=== PATIENT | male | born 1975 | race Caucasian/White ===

== ENCOUNTER 2019-06-26 22:15 | Inpatient (IN) | payer OTHER, SELFPAY ==
--- NOTE | 2019-06-26 22:17 | ED_ITS ---
HPI - Abdominal Pain General Chief Complaint: GI Bleed Stated Complaint: Constipation followed by bloody diarrhea Time Seen by Provider: 06/26/19 22:16 Source: patient Mode of arrival: Ambulatory Limitations: no limitations History of Present Illness HPI narrative: 44M non smoker without contributory medical history presents with chief complaint of rectal bleeding. He had been somewhat constipated for a day or so and then over the course of the day he has started having bright red rectal bleeding. He has some pain in LLQ, but not significant. He is not dizzy or lightheaded. He denies any rectal injury or fullness, nor any history of hemorrhoids. He has no family history of colon or rectal cancer and has never had a colonoscopy. He takes no blood thinners. He denies any new medications or dietary change. He has had no travel. He denies fever chills nor nausea or vomiting. He has had no chest pain or shortness of breath. MD complaint: other Onset (ago): hour(s) Pain Consistency: constant Location: LLQ Severity: moderate Quality: cramping and fullness Relieving factors: nothing Exacerbating factors: nothing Related Data Allergies Allergy/AdvReac Type Severity Reaction Status Date / Time No Known Drug Allergies Allergy Verified 06/26/19 22:28 Review of Systems Constitutional Constitutional: Denies chills, Denies fatigue, Denies fever(s), Denies frequent falls, Denies lethargy and Denies weakness Eyes Eyes: Denies change in vision, Denies eye discharge, Denies irritation and Denies loss of vision ENT Ears, Nose, Mouth, and Throat: Denies change in voice, Denies dizziness, Denies neck pain, Denies sore throat and Denies throat swelling Cardiovascular Cardiovascular: Denies chest pain, Denies irregular heart rhythm, Denies lightheadedness, Denies palpitations, Denies dyspnea, Denies dyspnea on exertion and Denies orthopnea Respiratory Respiratory: Denies cough, Denies dyspnea, Denies dyspnea on exertion and Denies wheezing Gastrointestinal Gastrointestinal: Denies abdominal pain, Reports hematochezia, Denies change in bowel habits, Denies diarrhea, Denies nausea and Denies vomiting Genitourinary Genitourinary: Denies hematuria, Denies flank pain, Denies urinary incontinence and Denies urinary urgency Musculoskeletal Musculoskeletal: Denies back pain, Denies muscle weakness, Denies neck pain, Denies numbness and Denies tingling Integumentary/Breasts Skin/Breast: Denies pruritus, Denies erythema, Denies rash and Denies wounds Neurologic Neurologic: Denies behavioral changes, Denies confusion, Denies dizziness, Denies frequent falls, Denies loss of vision, Denies numbness, Denies tingling and Denies weakness Psychiatric Psychiatric: Denies anxiety, Denies behavioral changes, Denies confusion, Denies depression, Denies homicidal ideation and Denies suicidal ideation Endocrine Endocrine: Denies fatigue, Denies flushing and Denies palpitations Hematologic/Lymphatic Hematologic/Lymphatic: Denies easy bruising Allergic/Immunologic Allergic/Immunologic: Denies urticaria, Denies throat swelling and Denies wheez ing Patient History Social History Smoking Status: Never smoker Smoking Status: Never smoker Exam Narrative Exam Narrative: GENERAL: [44] year old patient appears stated age. Well- nourished, well-developed patient, in mild distress. HEAD: Atraumatic. Normocephalic. EYES: Pupils equal round and reactive. Extraocular motions intact. No scleral icterus. No injection or drainage. ENT: Nose without bleeding, purulent drainage. Throat without erythema, tonsillar hypertrophy or exudate. Airway patent. NECK: Trachea midline. Non tender CARDIOVASCULAR: Regular rate and rhythm without murmurs, gallops, or rubs. RESPIRATORY: Clear to auscultation. Breath sounds equal bilaterally. No wheezes, rales, or rhonchi. GASTROINTESTINAL: Abdomen soft, non-tender, nondistended. RECTAL: No fissure or hemorrhoid. Heme + EXTREMITIES: No edema or joint tenderness. BACK: Nontender without deformity or crepitance. No flank tenderness. NEURO: AOx3. SKIN: No rash or erythema of visible areas Initial Vital Signs Initial Vital Signs: Vital Signs Temperature 96.8 F L 06/26/19 22:25 Pulse Rate 91 H 06/26/19 22:25 Respiratory Rate 15 06/26/19 22:25 Blood Pressure 170/102 H 06/26/19 22:25 Pulse Oximetry 97 06/26/19 22:25 Course Orders Ordered: ED Orders 06/26/19 22:33 XR acute abdomen series Stat 06/26/19 22:50 Complete Blood Count AUTO DIFF Stat Comprehensive Metabolic Panel Stat Partial Thromboplastin Time Stat Prothrombin Time INR Stat 06/26/19 23:31 CT abdomen pelvis w con Stat 06/27/19 00:32 Hemoglobin and Hematocrit Stat Consultations Consultation #1: call to Gen Surg (Court) whom is in agreement that patient will need admission, stabilization and likely colonoscopy. Requests Levaquin/Flagyl Consultation #2: Hospitalist happy to accept Vital Signs Vital signs: Vital Signs - 8 hr 06/26/19 22:25 06/26/19 23:58 Temperature 96.8 F L Pulse Rate 91 H 82 Respiratory Rate 15 18 Blood Pressure 170/102 H Blood Pressure [Left Arm] 151/87 H Pulse Oximetry 97 96 MDM - Abdominal Pain Lab Data Result diagrams: 06/27/19 00:32 06/26/19 22:50 Labs: Lab Results 06/26/19 06/26/19 06/26/19 Range/Units 22:50 22:50 22:50 WBC 13.5 H (4.5-11.0) X10^3/uL RBC 5.60 (4.5-5.9) X10^6/uL Hgb 16.1 (13.5-17.5) g/dL Hct 46.2 (41-53) % MCV 82.6 (80-100) fL MCH 28.8 (26-34) PG MCHC 34.9 (30-36) % RDW 13.5 (11.6-14.8) % Plt Count 406 H (150-400) X10^3/uL Neut % (Auto) 77.4 H (50-75) % Lymph % (Auto) 12.1 L (25-40) % Sabine % (Auto) 7.6 (3-14) % Eos % (Auto) 2.1 (2-4) % Baso % (Auto) 0.8 (0-2) % Neut # (Auto) 73310 H (8339-2216) /uL Lymph # (Auto) 1600 (6445-3828) /uL Sabine # (Auto) 1000 H (0-900) /uL Eos # (Auto) 300 (0-450) /uL Baso # (Auto) 100 (0-100) /uL PT 11.6 (10.1-12.7) SECONDS INR 1.0 (0.9-1.3) APTT 32 (26.4-36.2) SECONDS Sodium 137 (137-145) mmol/L Potassium 4.4 (3.4-5.1) mmol/L Chloride 102 (98-107) mmol/L Carbon Dioxide 27 (22-32) mmol/L BUN 14 (9-20) mg/dL Creatinine 1.01 (0.66-1.25) mg/dL Estimated GFR > 60.0 (>60) mL/min BUN/Creatinine Ratio 13.9 (6-22) Glucose 96 (70-100) mg/dL Calcium 10.0 (8.4-10.2) mg/dL Total Bilirubin 0.6 (0.2-1.3) mg/dL AST 28 (17-59) IU/L ALT 34 (<50) IU/L Alkaline Phosphatase 57 (38-126) U/L Total Protein 7.9 (6.3-8.2) g/dL Albumin 4.8 (3.5-5.0) g/dL Globulin 3.1 (1.7-4.1) g/dL Albumin/Globulin Ratio 1.5 (1.0-2.8) 06/27/19 Range/Units 00:32 WBC (4.5-11.0) X10^3/uL RBC (4.5-5.9) X10^6/uL Hgb 15.5 (13.5-17.5) g/dL Hct 44.8 (41-53) % MCV (80-100) fL MCH (26-34) PG MCHC (30-36) % RDW (11.6-14.8) % Plt Count (150-400) X10^3/uL Neut % (Auto) (50-75) % Lymph % (Auto) (25-40) % Sabine % (Auto) (3-14) % Eos % (Auto) (2-4) % Baso % (Auto) (0-2) % Neut # (Auto) (2306-6619) /uL Lymph # (Auto) (8027-6715) /uL Sabine # (Auto) (0-900) /uL Eos # (Auto) (0-450) /uL Baso # (Auto) (0-100) /uL PT (10.1-12.7) SECONDS INR (0.9-1.3) APTT (26.4-36.2) SECONDS Sodium (137-145) mmol/L Potassium (3.4-5.1) mmol/L Chloride (98-107) mmol/L Carbon Dioxide (22-32) mmol/L BUN (9-20) mg/dL Creatinine (0.66-1.25) mg/dL Estimated GFR (>60) mL/min BUN/Creatinine Ratio (6-22) Glucose (70-100) mg/dL Calcium (8.4-10.2) mg/dL Total Bilirubin (0.2-1.3) mg/dL AST (17-59) IU/L ALT (<50) IU/L Alkaline Phosphatase (38-126) U/L Total Protein (6.3-8.2) g/dL Albumin (3.5-5.0) g/dL Globulin (1.7-4.1) g/dL Albumin/Globulin Ratio (1.0-2.8) Imaging Data CT scan - abdomen/pelvis: Radiologist's Impression: Moderate colitis involving the descending and proximal sigmoid colon segments MDM Narrative Medical decision making narrative: H/H remains stable as do vitals, but given the fact that patient has had 5+ bloody BMs during visit we will bring him in for stabilization and further evaluation with repeat H/H, abd exams, and likely colonoscopy Discharge Plan Departure Patient Disposition: Admitted As Inpatient Clinical Impression: Colitis, Bright red rectal bleeding Admit Date/Time: 06/27/19 01:15 Admit Provider: Migue Francois
[2019-06-26 22:25] VITALS: BP 170/102; PULSE 91; RESP 15; TEMP 36; O2SAT 97; BMI 31.6
--- NOTE | 2019-06-26 22:33 | DI.RAD.S_ITS ---
PROCEDURE: XR ACUTE ABDOMEN SERIES INDICATIONS: Abdominal pain, constipation, bloody diarrhea TECHNIQUE: One view chest and two views of the abdomen were acquired. COMPARISON: None. FINDINGS: Surgical changes and devices: None. Chest: Lungs are clear. Heart size is normal. No pleural effusions. No pneumoperitoneum. Abdomen: Bowel gas pattern is normal except for mild right colonic obstipation. No suspicious calcifications. Visualized solid organ contours appear normal. Bones: No suspicious bony lesions. IMPRESSION: Mild colonic obstipation right colon. Dictated by: Alessandro Garcia M.D. on 06/27/2019 at 8:06 Approved by: Alessandro Garcia M.D. on 06/27/2019 at 8:07
--- NOTE | 2019-06-26 22:55 | PC.NURSE ---
patient required two breaks from starting IV and abdominal xray to urgently use the restroom. Visible vishnu blood in toilet. He reports he's had maybe 20 of these episodes today. Denies lightheadedness, dizzyness. Ambulates with steady gate.
[2019-06-26 23:06] LABS: Add Manual Diff / Slide Review NO; Basophils Absolute Auto 100 /uL (0-100); Basophils Percent Auto 0.8 % (0-2); Eosinophils Absolute Auto 300 /uL (0-450); Eosinophils Percent Auto 2.1 % (2-4); Hematocrit 46.2 % (41-53); Hemoglobin 16.1 g/dL (13.5-17.5); Lymphocytes Absolute Auto 1600 /uL (1100-4500); Lymphocytes Percent Auto 12.1 % (25-40); Mean Corpuscular HGB Conc 34.9 % (30-36); Mean Corpuscular Hemoglobin 28.8 PG (26-34); Mean Corpuscular Volume 82.6 fL (80-100); Monocytes Absolute Auto 1000 /uL (0-900); Monocytes Percent Auto 7.6 % (3-14); Neutrophils Absolute Auto 10500 /uL (1500-7000); Neutrophils Percent Auto 77.4 % (50-75); Platelet Count 406 X10^3/uL (150-400); Red Cell Distribution Width 13.5 % (11.6-14.8); White Blood Cell Count 13.5 X10^3/uL (4.5-11.0)
[2019-06-26 23:09] LABS: Prothrombin Time 11.6 SECONDS (10.1-12.7)
[2019-06-26 23:11] LABS: PTT Partial Thromboplastin Tim 32 SECONDS (26.4-36.2)
[2019-06-26 23:21] LABS: Alanine Aminotransferase 34 IU/L (<50); Albumin 4.8 g/dL (3.5-5.0); Albumin Globulin Ratio 1.5 (1.0-2.8); Alkaline Phosphatase 57 U/L (38-126); Aspartate Aminotransferase 28 IU/L (17-59); BUN Creatinine Ratio 13.9 (6-22); Bilirubin Total 0.6 mg/dL (0.2-1.3); Blood Urea Nitrogen 14 mg/dL (9-20); Carbon Dioxide 27 mmol/L (22-32); Chloride 102 mmol/L (98-107); Estimated Glomerular Filt Rate > 60.0 mL/min (>60); Globulin 3.1 g/dL (1.7-4.1); Glucose 96 mg/dL (70-100); HEMOLYSIS 21 (0-50); Potassium 4.4 mmol/L (3.4-5.1); Sodium 137 mmol/L (137-145); Total Protein 7.9 g/dL (6.3-8.2)
--- NOTE | 2019-06-26 23:31 | DI.CT.S_ITS ---
PROCEDURE: CT ABDOMEN PELVIS W CON INDICATIONS: Left lower quardant pain, elevated White cell count TECHNIQUE: After the administration of intravenous contrast, 5 mm thick sections acquired from the diaphragm to the symphysis. 5 mm coronal and sagittal reformats were acquired. For radiation dose reduction, the following was used: automated exposure control, adjustment of mA and/or kV according to patient size. COMPARISON: None. FINDINGS: Image quality: Excellent. ABDOMEN: Lung bases: Lung bases are clear. Heart size is normal. Solid organs: Liver is normal in size and enhancement. Gallbladder appears normal. Biliary system is non dilated. Pancreas enhances normally. Spleen is normal in size and enhancement. No adrenal nodules. Kidneys demonstrate normal size and enhancement, without hydronephrosis. Peritoneum and bowel: Bowel loops demonstrate normal wall thickness and caliber. No free fluid or air. Nodes and vessels: No retroperitoneal or mesenteric adenopathy by size criteria. Aorta and inferior vena cava are normal in size. Miscellaneous: No ventral hernias. PELVIS: Genitourinary: Bladder wall thickness is normal. Miscellaneous: No inguinal hernias or adenopathy. Over the lower half of the descending colon and extending to a mild degree into the proximal sigmoid colon there is mural thickening and immediate adjacent pericolonic slight edema. No focal diverticulitis appears present. Colitis is the presumed cause. Bones: No suspicious bony lesions. No vertebral body compression fractures. IMPRESSION: Mild left colonic colitis, involving the inferior half of the descending colon and the proximal portion of the adjacent contiguous sigmoid colon. No focus of acute diverticulitis is found and the inflammatory process is relatively long to the degree that infectious or much less likely ischemic colitis is considered the likely cause. Note: These findings are concordant with the preliminary interpretation. Dictated by: Alessandro Garcia M.D. on 06/27/2019 at 8:29 Approved by: Alessandro Garcia M.D. on 06/27/2019 at 9:07
[2019-06-26 23:58] VITALS: BP 151/87; PULSE 82; RESP 18; O2SAT 96
[2019-06-27] VITALS (8 sets, daily range): BP systolic 113–150; BP diastolic 59–97; PULSE 74–97; RESP 14–18; TEMP 36.1–36.9; O2SAT 94–99; BMI 32.3
--- NOTE | 2019-06-27 00:33 | PC.NURSE ---
repeat h&h drawn by carrie king
[2019-06-27 00:52] LABS: Hematocrit 44.8 % (41-53); Hemoglobin 15.5 g/dL (13.5-17.5)
[2019-06-27] MEDS: metroNIDAZOLE 500 MG/100 ML PIGGYBACK 100 MG IV ×3 (01:29→14:33)
[2019-06-27] MEDS: levoFLOXacin 500 MG/100 ML PIGGYBACK 100 MG IV (01:30)
--- NOTE | 2019-06-27 01:36 | PC.NURSE ---
patient reports never having ordered abx before. Abx scanned and hung piggy back to isolate in case of reaction.
--- NOTE | 2019-06-27 01:48 | PC.NURSE ---
patient reports feeling like his left arm is going numb from the elbow down. Provider at bedside assessing. Provider verbal order to stop abx. Both levo and flagyl. Pt reports no airway involvment, no hives, itching. No redness present at site. ABX stopped.
[2019-06-27] MEDS: SODIUM CHLORIDE 0.9% 1,000 ML 125 ML IV ×2 (02:39→12:53)
[2019-06-27] MEDS: PANTOPRAZOLE 40 MG VIAL IV ×2 (02:40→08:31)
--- NOTE | 2019-06-27 03:03 | PM.HP.1 ---
History of Present Illness History of Present Illness Date Patient Seen: 06/27/19 Time Patient Seen: 03:04 Chief complaint: Constipation followed by bloody diarrhea Narrative: Mr. Abner Cook is a 44-year-old male who is a nonsmoker with no significant medical history other than a bicuspid heart valve who presents to the ER for rectal bleeding. The patient states he developed a feeling of abdominal discomfort similar to constipation at about 2:00 a.m.. He got to go to the bathroom and was passing bright red blood. The patient adds that his abdominal pain is lessened after having diarrhea. The patient had associated left lower quadrant abdominal pain for which she took ibuprofen at home. The bleeding continued and therefore presented to the emergency department. The patient denies a prior history of rectal bleeding or hemorrhoids, has no family history of colonic disease or cancer, he has had no recent travel or changes in diet. He is not on blood thinners and has not had exposure to antibiotics. He denies recent illness and has had no fevers or chills, headaches or dizziness, nasal congestion or sore throat. He denies chest pain or palpitations and has no shortness of breath cough or wheezing. Upon arrival to the ER the patient is afebrile with temperature 96.8?, heart rate of 90, blood pressure elevated 170/1 2, respirations of 15 saturating 97 % on air. The patient underwent abdominal pelvic CT which identifies moderate mural thickening with surrounding edema of the descending and proximal sigmoid colon, no evidence of diverticular disease, no abscess or obstruction, normal appendix. On laboratory analyses white count elevated 13.5, hemoglobin of 16.1 and on recheck 15.5 with hematocrit of 44.8 and platelets of 0 6. Has a PT of 11.6 an INR 1.0 PTT of 32. His electrolytes are within normal limits and has a BUN of 14 and creatinine 1.01. His an elevated calcium at 10.0. His total bilirubin 0.6 with an AST of 28, ALT 34 and alkaline phosphatase 57. Patient History Medical History (Updated 06/27/19 @ 03:06 by CHRIS Sow) Bicuspid cardiac valve (Acute) Surgical History (Updated 06/27/19 @ 03:06 by CHRIS Sow) History of knee surgery (Acute) History of tonsillectomy and adenoidectomy (Acute) Family & Social History Social History: household members spouse,family Prior Living Arrangements House Safety & Behavioral: Feels Safe in Current Yes Environment Been Physically Hurt or No Threatened By a Person Suicidal Ideation Description None Tobacco & Substance use: Smoking Status Never smoker alcohol intake never Comment: The patient is engaged and lives in a single family home. The patient does not know his biological father any describes his mother is in good health. He has half siblings and his children are in good health the patient reports that there is no family history of diabetes he did have an and which had cancer and great grandmother that had heart disease. Smoking: The patient denies using tobacco products. Alcohol: Patient denies consuming alcohol. Substance use: The patient denies using recreational pharmaceuticals, herbal or cannabis products. Advanced directives: In direct conversation with the patient he states his desire to be FULL CODE. The patient designates Hung Mendosa to be his surrogate decision maker. Meds Home Medications and Allergies Allergies Allergy/AdvReac Type Severity Reaction Status Date / Time No Known Drug Allergies Allergy Verified 06/26/19 22:28 Review of Systems Review of Systems ROS: Yes All systems reviewed with the patient and are negative except as otherwise documented Exam Vital Signs (past 8 hours): - 06/26/19 22:25 06/26/19 23:58 06/27/19 01:45 Temperature 96.8 F L Pulse Rate 91 H 82 88 Respiratory Rate 15 18 14 Blood Pressure 170/102 H Blood Pressure [Left Arm] 151/87 H 150/97 H Pulse Oximetry 97 96 99 06/27/19 02:05 Temperature 98.2 F Pulse Rate 82 Respiratory Rate 18 Blood Pressure 128/74 Blood Pressure [Left Arm] Pulse Oximetry 97 Oxygen Delivery Method Room Air Oxygen Flow Rate 0 Narrative Exam Narrative: GENERAL APPEARANCE: well developed, well nourished, in no acute distress. HEENT: Normocephalic, PERRLA, conjunctiva clear, EOMs intact without nystagmus, no sinus tenderness to percussion, no rhinorrhea, mucous membranes are moist and pink without lesions or exudate. NECK/THYROID: neck supple, no JVD, no carotid bruit, no thyromegaly, trachea midline. LYMPH NODES: no cervical or supraclavicular lymphadenopathy. SKIN: [place], warm and dry, no visible lesions, rashes, ulcerations or petechiae. HEART: regular rate and rhythm, S1-S2, 2/6 systolic murmur, no rubs or gallops, brisk capillary refill, no edema LUNGS: clear to auscultation bilaterally, no coarseness crackles or wheezing, no cough present CHEST: Symmetrical movement, no accessory muscle use, good tidal volume. ABDOMEN: Soft, mild distention, left lower quadrant tenderness, no guarding or peritoneal signs, no organomegaly, no flank or suprapubic tenderness, hyperactive bowel tones. BACK: Normal curvature, nontender to palpation, no CVA tenderness on percussion EXTREMITIES: moves all extremities, strength is 5/5 and symmetrical, no deformities or joint effusions. NEUROLOGIC: AAO x4, no focal neurologic deficits, cranial nerves II-XII grossly intact, sensation intact to light touch, hearing grossly normal to speech. PSYCH: Good judgment, good insight, linear thought process, cooperative, appropriate with stable behavior Objective Labs Result Diagrams: 06/27/19 00:32 06/26/19 22:50 Labs: Laboratory Results - last 24 hr 06/26/19 06/26/19 06/26/19 22:50 22:50 22:50 WBC 13.5 H RBC 5.60 Hgb 16.1 Hct 46.2 MCV 82.6 MCH 28.8 MCHC 34.9 RDW 13.5 Plt Count 406 H Neut % (Auto) 77.4 H Lymph % (Auto) 12.1 L Ogle % (Auto) 7.6 Eos % (Auto) 2.1 Baso % (Auto) 0.8 Neut # (Auto) 01207 H Lymph # (Auto) 1600 Ogle # (Auto) 1000 H Eos # (Auto) 300 Baso # (Auto) 100 PT 11.6 INR 1.0 APTT 32 Sodium 137 Potassium 4.4 Chloride 102 Carbon Dioxide 27 BUN 14 Creatinine 1.01 Estimated GFR > 60.0 BUN/Creatinine Ratio 13.9 Glucose 96 Calcium 10.0 Magnesium Total Bilirubin 0.6 AST 28 ALT 34 Alkaline Phosphatase 57 Total Protein 7.9 Albumin 4.8 Globulin 3.1 Albumin/Globulin Ratio 1.5 06/26/19 06/27/19 22:50 00:32 WBC RBC Hgb 15.5 Hct 44.8 MCV MCH MCHC RDW Plt Count Neut % (Auto) Lymph % (Auto) Ogle % (Auto) Eos % (Auto) Baso % (Auto) Neut # (Auto) Lymph # (Auto) Ogle # (Auto) Eos # (Auto) Baso # (Auto) PT INR APTT Sodium Potassium Chloride Carbon Dioxide BUN Creatinine Estimated GFR BUN/Creatinine Ratio Glucose Calcium Magnesium 2.0 Total Bilirubin AST ALT Alkaline Phosphatase Total Protein Albumin Globulin Albumin/Globulin Ratio Assessment & Plan Assessment & Plan narrative: This is a 44-year-old male with no significant medical history other than a bicuspid heart valve that developed left lower quadrant pain and bright red bleeding per rectum 24 hours ago. Patient has no prior history or identifiable precipitating factors. Hemorrhagic colitis, acute present on admission, active. -patient had onset of rectal bleeding approximately 24 hours ago with no prior personal or family history, stool is described as red blood with little stool content. -patient has had approximately 20 episodes of passing bloody stool but maintains an adequate H&H in the ER initially 16.1 and hour and half later is 15.5. -patient is afebrile, white count at 13.5, PT is 11.6 with an INR 1.0, CT finds moderate mural thickening with surrounding edema of the descending and proximal sigmoid colon, no diverticular disease, no abscess, no obstruction, normal appendix. -differential diagnosis: Infectious bacterial or viral colitis-will obtain GI panel. Empiric treatment with metronidazole 500 mg every 6 hours, Cipro 400 mg every 12 hours. Ulcerative colitis or Crohn's disease-plan for colonoscopy. -Dr. Yun is contacted through the emergency department and agrees to consult, we appreciate his evaluation and recommendations. -will continue to monitor H&H closely with serial H&H and CBC. VTE prophylaxis: SCDs, chemical prophylaxis contraindicated with GI bleed IV fluid: Normal saline 125 cc/hour. Diet: NPO Code status: FULL CODE. The patient with left lower quadrant abdominal pain and rectal bleeding. Patient is admitted to the hospital with hemorrhagic colitis as an inpatient with expected length of stay to be greater than 2 midnight. Scores GCS Joanne coma scale eye opening: Spontaneous Joanne coma scale verbal response: Orientated [place] coma scale motor response: Obey commands Joanne coma scale total score: 15 Quality VTE Deep Vein Thrombosis/Pulmonary Embolism Present on Admission: No
--- NOTE | 2019-06-27 03:17 | PC.NURSE ---
NOC note: Pt reports cramping pain in lower ABD and has been to the bathroom to pass a small amount of vishnu blood with no visible stool. IVF running as ordered. Pt is NPO.
[2019-06-27] MEDS: CIPROFLOXACIN 400 MG/200 ML PIGGYBACK 200 MG IV (04:08)
[2019-06-27 05:22] LABS: Add Manual Diff / Slide Review NO; Basophils Absolute Auto 100 /uL (0-100); Basophils Percent Auto 0.5 % (0-2); Eosinophils Absolute Auto 200 /uL (0-450); Eosinophils Percent Auto 1.9 % (2-4); Hematocrit 44.1 % (41-53); Hemoglobin 15.1 g/dL (13.5-17.5); Lymphocytes Absolute Auto 1600 /uL (1100-4500); Lymphocytes Percent Auto 12.4 % (25-40); Mean Corpuscular HGB Conc 34.4 % (30-36); Mean Corpuscular Hemoglobin 28.5 PG (26-34); Mean Corpuscular Volume 82.9 fL (80-100); Monocytes Absolute Auto 900 /uL (0-900); Monocytes Percent Auto 6.9 % (3-14); Neutrophils Absolute Auto 10300 /uL (1500-7000); Neutrophils Percent Auto 78.3 % (50-75); Platelet Count 333 X10^3/uL (150-400); Red Blood Cell Count 5.31 X10^6/uL (4.5-5.9); Red Cell Distribution Width 13.2 % (11.6-14.8); White Blood Cell Count 13.2 X10^3/uL (4.5-11.0)
[2019-06-27 05:30] LABS: BUN Creatinine Ratio 11.3 (6-22); Blood Urea Nitrogen 13 mg/dL (9-20); Calcium 9.1 mg/dL (8.4-10.2); Carbon Dioxide 30 mmol/L (22-32); Chloride 100 mmol/L (98-107); Estimated Glomerular Filt Rate > 60.0 mL/min (>60); Glucose 121 mg/dL (70-100); HEMOLYSIS 26 (0-50); Potassium 4.5 mmol/L (3.4-5.1); Sodium 137 mmol/L (137-145)
--- NOTE | 2019-06-27 11:31 | P.CONS_ITS ---
History of Present Illness Consult details Date Patient Seen: 06/27/19 Time Patient Seen: 11:00 Chief complaint: Constipation followed by bloody diarrhea Reason for consult: Intestinal bleeding Requesting provider: Stephanie Hennessy Narrative: The patient is a gentleman who was awakened yesterday at 2:00 a.m. with left lower quadrant crampy pain. She got up and tried to go to the bathroom and it took a while that he ultimately passed a hard stool. Since that time he has been having small intermittent bloody bowel movements. They are essentially blood with very little stool if any. He has never had this before. The pain increases with movement. Denies any fever chills. He has had no abdominal procedures. No in his family has ulcerative colitis or Crohn's disease. There is no family history of GI tract malignancy. He has had no vomiting. Meds Home Medications and Allergies Home Medications Medication Instructions Recorded Confirmed Type No Known Home Medications 06/27/19 06/27/19 History Allergies Allergy/AdvReac Type Severity Reaction Status Date / Time No Known Drug Allergies Allergy Verified 06/26/19 22:28 Review of Systems Review of Systems Narrative: Patient denies history of jaundice visual difficulties double vision. No cough cold or asthma. No fever chills. No heart problems chest pain. No prior black or bloody bowel movements. No trouble urinating or blood in his urine. No seizures or blackouts. He had sleep apnea and underwent a tonsillectomy because they were quite large and obstructing his airway. He states he is not a problem since his tonsillectomy. He does have a sleep apnea machine but no longer needs to use it. Exam Vital Signs (past 8 hours): - 06/27/19 06:00 06/27/19 08:00 Temperature 98.4 F 97.7 F Pulse Rate 77 78 Respiratory Rate 18 18 Blood Pressure 121/80 122/83 Pulse Oximetry 96 95 Oxygen Delivery Method Room Air Oxygen Flow Rate 0 Narrative Exam Narrative: No apparent distress. His eyes are nonicteric. Oral mucosa pink moist. Teeth are intact. No splits is lips. There are no nodes in the neck or supraclavicular 2 areas. Lungs are clear auscultation. No rales or rhonchi. Equal percussion. Heart regular rate and rhythm without murmur gallop. No heave lift or thrill. His abdomen is protuberant soft. There is no guarding. He has localized left lower quadrant tenderness. No hernias are appreciated in the groin or the abdominal wall. Extremities without cyanosis clubbing or edema. Normal adult hair pattern. Patient is alert and oriented x3. Speech rate and content are appropriate. Affect is appropriate. Objective Imaging CT scan - abdomen: My impression: The patient appears to have some thickening in a discrete area of his descending colon extending onto the proximal sigmoid. He also may have some thickening of his terminal ileum. It is difficult to tell however. No other significant findings on CT of the abdomen was a pelvis. Labs Result Diagrams: 06/27/19 05:00 06/27/19 05:00 Labs: Laboratory Results - last 24 hr 06/26/19 06/26/19 06/26/19 22:50 22:50 22:50 WBC 13.5 H RBC 5.60 Hgb 16.1 Hct 46.2 MCV 82.6 MCH 28.8 MCHC 34.9 RDW 13.5 Plt Count 406 H Neut % (Auto) 77.4 H Lymph % (Auto) 12.1 L [place] % (Auto) 7.6 Eos % (Auto) 2.1 Baso % (Auto) 0.8 Neut # (Auto) 67898 H Lymph # (Auto) 1600 [place] # (Auto) 1000 H Eos # (Auto) 300 Baso # (Auto) 100 PT 11.6 INR 1.0 APTT 32 Sodium 137 Potassium 4.4 Chloride 102 Carbon Dioxide 27 BUN 14 Creatinine 1.01 Estimated GFR > 60.0 BUN/Creatinine Ratio 13.9 Glucose 96 Calcium 10.0 Magnesium Total Bilirubin 0.6 AST 28 ALT 34 Alkaline Phosphatase 57 Total Protein 7.9 Albumin 4.8 Globulin 3.1 Albumin/Globulin Ratio 1.5 06/26/19 06/27/19 06/27/19 22:50 00:32 05:00 WBC 13.2 H RBC 5.31 Hgb 15.5 15.1 Hct 44.8 44.1 MCV 82.9 MCH 28.5 MCHC 34.4 RDW 13.2 Plt Count 333 Neut % (Auto) 78.3 H Lymph % (Auto) 12.4 L [place] % (Auto) 6.9 Eos % (Auto) 1.9 L Baso % (Auto) 0.5 Neut # (Auto) 52206 H Lymph # (Auto) 1600 [place] # (Auto) 900 Eos # (Auto) 200 Baso # (Auto) 100 PT INR APTT Sodium Potassium Chloride Carbon Dioxide BUN Creatinine Estimated GFR BUN/Creatinine Ratio Glucose Calcium Magnesium 2.0 Total Bilirubin AST ALT Alkaline Phosphatase Total Protein Albumin Globulin Albumin/Globulin Ratio 06/27/19 05:00 WBC RBC Hgb Hct MCV MCH MCHC RDW Plt Count Neut % (Auto) Lymph % (Auto) [place] % (Auto) Eos % (Auto) Baso % (Auto) Neut # (Auto) Lymph # (Auto) [place] # (Auto) Eos # (Auto) Baso # (Auto) PT INR APTT Sodium 137 Potassium 4.5 Chloride 100 Carbon Dioxide 30 BUN 13 Creatinine 1.15 Estimated GFR > 60.0 BUN/Creatinine Ratio 11.3 Glucose 121 H Calcium 9.1 Magnesium Total Bilirubin AST ALT Alkaline Phosphatase Total Protein Albumin Globulin Albumin/Globulin Ratio Assessment & Plan Assessment & Plan narrative: Patient with bright red bleeding per rectum after a difficult bowel movement. His localized tenderness left lower quadrant. Mild elevation of his white blood cell count. His hematocrit is normal. Amount of bleeding appears to be minimal. He has not actually produced enough stool to send the specimen for C diff. He is just having small smears of blood. Given location of the colonic thickening a number of possibilities come to mine. This could be diverticular in nature. I a rarely see diverticulitis in the face of bleeding but it is certainly possible. He does have an elevated white blood c ell count is appropriately tender. Patient could also have ischemic colitis. He is pretty young for that and has never been a smoker but is certainly within the differential and the location of his abnormality would be potentially consistent with that. He also could have ulcerative colitis or Crohn's disease or some other inflammatory bowel issue. Less likely would be an emboli causing ischemia. I agree with the use of broad-spectrum antibiotics. Will give him 1 dose of steroid as well. Will give him a cautious bowel prep in consider flex sig tomorrow. I do not think there is any urgency about proceeding to endoscopy given his normal hematocrit, pulse and temperature.
[2019-06-27] MEDS: ACETAMINOPHEN 325 MG TABLET 650 MG PO ×2 (12:46→23:53)
[2019-06-27] MEDS: MAGNESIUM CITRATE 300 ML SOLUTION 150 ML PO (12:53)
[2019-06-27] MEDS: HYDROCORTISONE 100 MG/2 ML VIAL IV (12:53)
--- NOTE | 2019-06-27 12:58 | CM.DANOTE ---
DCP: Case received, EMR reviewed. Called patient in his room for he is on droplet precautions. Introduced self and role over the phone. Was able to converse with him and obtain information regarding baseline activity level prior to hospital admit. DCP assessment completed with information currently available. Patient is a 44 year old male who admitted early this morning to the care of the hospitalist team. PCP: Dr. Roblero. Payer: confirmed: [facility]. Patient came to the hospital via family vehicle secondary to rectal bleeding. Patient was also noted to have constipation. Patient holds current diagnosis of hemorrhagic colitis. Spoke to patient over the phone. He is alert and oriented. Stated, they are supposed to do a scope tomorrow. Patient stated, he has never had any of these symptoms before. He is currently employed at [employer], and confirmed that his primary care provider is Dr. Roblero. Patient resides here in [place] with his spouse, Hung. P: DCP to continue to follow. Patient will have procedure. He should be able to go home when testing is completed, and he is medically stable. Anahi Wheeler RN/[employer] Metal [employer]ator
--- NOTE | 2019-06-27 14:16 | PC.NURSE ---
Transfer Note Patient transferred to room 218 from room 224. Droplet/contact isolation measures in place for COVID rule out. All belongings with pt. Transported via wheelchair. Report given to Barrett SAUNDERS.
[2019-06-27 14:32] LABS: Adenovirus F 40/41 Not Detected (Not Detect); Astrovirus Not Detected (Not Detect); Campylobacter Not Detected (Not Detect); Cryptosporidium Not Detected (Not Detect); Cyclospora cayetanensis Not Detected (Not Detect); Entamoeba histolytica Not Detected (Not Detect); Enteroaggregative E.coli Not Detected (Not Detect); Enteropathogenic E.coli Detected (Not Detect); Enterotoxigenic E.coli It/st Not Detected (Not Detect); Giardia lamblia Not Detected (Not Detect); Norovirus GI/GII Not Detected (Not Detect); Plesiomonsa shigelloides Not Detected (Not Detect); Rotavirus A Not Detected (Not Detect); Salmonella Not Detected (Not Detect); Sapovirus Not Detected (Not Detect); Shiga-like toxin-prod E.coli Not Detected (Not Detect); Shigella/Enteroinvasive E.coli Not Detected (Not Detect); Vibrio Not Detected (Not Detect); Vibrio cholerae Not Detected (Not Detect); Yersinia enterocolitica Not Detected (Not Detect)
[2019-06-27 14:35] LABS: Clostridium difficile toxin AB Detected (Not Detect)
--- NOTE | 2019-06-27 14:45 | PC.NURSE ---
Day shift: Pt under the care of this music writer at approc 1415. Pt moved from ICU location. Pt oriented to new room. VS WNL. No c/o pain or discomfort. NPO at this time. Awaiting Dr Derek contreras.
[2019-06-27] MEDS: VANCOMYCIN 125 MG CAPSULE PO ×2 (16:36→23:44)
--- NOTE | 2019-06-27 16:58 | PM.PN.1 ---
Subjective Subjective Interval history: Brief progress note: Patient seen and examined. Physical exam unchanged. Patient's diarrhea and rectal bleeding are secondary to C difficile colitis found on GI stool PCR, started on oral vancomycin 125 mg every 6 hours, contact precautions in place, lower endoscopy canceled, and the patient's diet was advanced. PPI was discontinued. Agree with the rest of admitting provider's assessment and plan. Exam Vital Signs (past 8 hours): - 06/27/19 15:50 06/27/19 19:37 Temperature 97.3 F L 97.9 F Pulse Rate 84 97 H Respiratory Rate 18 18 Blood Pressure 125/75 143/89 H Pulse Oximetry 95 94 Oxygen Delivery Method Room Air Oxygen Flow Rate 0 Objective Labs Result Diagrams: 06/27/19 05:00 06/27/19 05:00 Labs: Laboratory Results - last 24 hr 06/26/19 06/26/19 06/26/19 22:50 22:50 22:50 WBC RBC Hgb Hct MCV MCH MCHC RDW Plt Count Neut % (Auto) Lymph % (Auto) [place] % (Auto) Eos % (Auto) Baso % (Auto) Neut # (Auto) Lymph # (Auto) [place] # (Auto) Eos # (Auto) Baso # (Auto) PT 11.6 INR 1.0 APTT 32 Sodium 137 Potassium 4.4 Chloride 102 Carbon Dioxide 27 BUN 14 Creatinine 1.01 Estimated GFR > 60.0 BUN/Creatinine Ratio 13.9 Glucose 96 Calcium 10.0 Magnesium 2.0 Total Bilirubin 0.6 AST 28 ALT 34 Alkaline Phosphatase 57 Total Protein 7.9 Albumin 4.8 Globulin 3.1 Albumin/Globulin Ratio 1.5 Procalcitonin Stl C. cayetanensis PCR Stool Rotavirus (PCR) Stool Adenovirus (PCR) Stool Astrovirus (PCR) Stool Cryptosporidium PCR Stl E.coli Shiga Tox PCR St Sh/Enteroin Ecoli PCR Stool E coli O157 PCR Stl Enterotoxigenic E PCR Stool EPEC (PCR) Stl E. histolytica PCR Stool Giardia Lamblia PCR Stool Sapovirus (PCR) Stl P. shigelloides PCR St Y.enterocolitica PCR Stool Vibrio (PCR) Stl Vibrio cholerae PCR Stl Enteroaggr Ecoli PCR Stl Norovirus GI/GII PCR Campylobacter (PCR) C. difficile Tox (PCR) COVID-19 PCR Salmonella (PCR) 06/27/19 06/27/19 06/27/19 00:32 05:00 05:00 WBC 13.2 H RBC 5.31 Hgb 15.5 15.1 Hct 44.8 44.1 MCV 82.9 MCH 28.5 MCHC 34.4 RDW 13.2 Plt Count 333 Neut % (Auto) 78.3 H Lymph % (Auto) 12.4 L [place] % (Auto) 6.9 Eos % (Auto) 1.9 L Baso % (Auto) 0.5 Neut # (Auto) 19903 H Lymph # (Auto) 1600 [place] # (Auto) 900 Eos # (Auto) 200 Baso # (Auto) 100 PT INR APTT Sodium 137 Potassium 4.5 Chloride 100 Carbon Dioxide 30 BUN 13 Creatinine 1.15 Estimated GFR > 60.0 BUN/Creatinine Ratio 11.3 Glucose 121 H Calcium 9.1 Magnesium Total Bilirubin AST ALT Alkaline Phosphatase Total Protein Albumin Globulin Albumin/Globulin Ratio Procalcitonin Stl C. cayetanensis PCR Stool Rotavirus (PCR) Stool Adenovirus (PCR) Stool Astrovirus (PCR) Stool Cryptosporidium PCR Stl E.coli Shiga Tox PCR St Sh/Enteroin Ecoli PCR Stool E coli O157 PCR Stl Enterotoxigenic E PCR Stool EPEC (PCR) Stl E. histolytica PCR Stool Giardia Lamblia PCR Stool Sapovirus (PCR) Stl P. shigelloides PCR St Y.enterocolitica PCR Stool Vibrio (PCR) Stl Vibrio cholerae PCR Stl Enteroaggr Ecoli PCR Stl Norovirus GI/GII PCR Campylobacter (PCR) C. difficile Tox (PCR) COVID-19 PCR Salmonella (PCR) 06/27/19 06/27/19 06/27/19 05:00 09:30 12:55 WBC RBC Hgb Hct MCV MCH MCHC RDW Plt Count Neut % (Auto) Lymph % (Auto) [place] % (Auto) Eos % (Auto) Baso % (Auto) Neut # (Auto) Lymph # (Auto) [place] # (Auto) Eos # (Auto) Baso # (Auto) PT INR APTT Sodium Potassium Chloride Carbon Dioxide BUN Creatinine Estimated GFR BUN/Creatinine Ratio Glucose Calcium Magnesium Total Bilirubin AST ALT Alkaline Phosphatase Total Protein Albumin Globulin Albumin/Globulin Ratio Procalcitonin 0.07 Stl C. cayetanensis PCR Not detected Stool Rotavirus (PCR) Not detected Stool Adenovirus (PCR) Not detected Stool Astrovirus (PCR) Not detected Stool Cryptosporidium PCR Not detected Stl E.coli Shiga Tox PCR Not detected St Sh/Enteroin Ecoli PCR Not detected Stool E coli O157 PCR Not detected Stl Enterotoxigenic E PCR Not detected Stool EPEC (PCR) Detected H Stl E. histolytica PCR Not detected Stool Giardia Lamblia PCR Not detected Stool Sapovirus (PCR) Not detected Stl P. shigelloides PCR Not detected St Y.enterocolitica PCR Not detected Stool Vibrio (PCR) Not detected Stl Vibrio cholerae PCR Not detected Stl Enteroaggr Ecoli PCR Not detected Stl Norovirus GI/GII PCR Not detected Campylobacter (PCR) Not detected C. difficile Tox (PCR) Detected H COVID-19 PCR Not detected Salmonella (PCR) Not detected Quality VTE Deep Vein Thrombosis/Pulmonary Embolism Present on Admission: No
[2019-06-27 18:14] LABS: Procalcitonin 0.07 ng/mL (<0.5)
[2019-06-27 19:39] LABS: COVID19 Sendout Not Detected (Not Detect)
[2019-06-28 05:58] VITALS: BP 100/71; PULSE 73; RESP 18; TEMP 36.7; O2SAT 95
[2019-06-28] MEDS: VANCOMYCIN 125 MG CAPSULE PO (06:04)
[2019-06-28 06:18] LABS: Add Manual Diff / Slide Review NO; Basophils Absolute Auto 100 /uL (0-100); Basophils Percent Auto 0.5 % (0-2); Eosinophils Absolute Auto 200 /uL (0-450); Eosinophils Percent Auto 1.4 % (2-4); Hematocrit 41.1 % (41-53); Hemoglobin 14.2 g/dL (13.5-17.5); Lymphocytes Absolute Auto 1900 /uL (1100-4500); Lymphocytes Percent Auto 17.9 % (25-40); Mean Corpuscular HGB Conc 34.5 % (30-36); Mean Corpuscular Hemoglobin 28.8 PG (26-34); Mean Corpuscular Volume 83.3 fL (80-100); Monocytes Absolute Auto 900 /uL (0-900); Neutrophils Absolute Auto 7800 /uL (1500-7000); Neutrophils Percent Auto 72.2 % (50-75); Platelet Count 326 X10^3/uL (150-400); Red Blood Cell Count 4.93 X10^6/uL (4.5-5.9); White Blood Cell Count 10.8 X10^3/uL (4.5-11.0)
[2019-06-28 06:27] LABS: BUN Creatinine Ratio 11.3 (6-22); Blood Urea Nitrogen 12 mg/dL (9-20); Carbon Dioxide 29 mmol/L (22-32); Chloride 101 mmol/L (98-107); Estimated Glomerular Filt Rate > 60.0 mL/min (>60); Glucose 104 mg/dL (70-100); HEMOLYSIS < 15 (0-50); Magnesium 2.5 mg/dL (1.6-2.3); Potassium 3.9 mmol/L (3.4-5.1); Sodium 137 mmol/L (137-145)
--- NOTE | 2019-06-28 07:47 | P.DS_ITS ---
History of Present Illness History of Present Illness Date Patient Seen: 06/27/19 Chief complaint: Constipation followed by bloody diarrhea Narrative: Written by Migue PEREZ: Mr. Galileo Cook is a 44-year-old male who is a nonsmoker with no significant medical history other than a bicuspid heart valve who presents to the ER for rectal bleeding. The patient states he developed a feeling of abdominal discomfort similar to constipation at about 2:00 a.m.. He got to go to the bathroom and was passing bright red blood. The patient adds that his abdominal pain is lessened after having diarrhea. The patient had associated left lower quadrant abdominal pain for which she took ibuprofen at home. The bleeding continued and therefore presented to the emergency department. The patient denies a prior history of rectal bleeding or hemorrhoids, has no family history of colonic disease or cancer, he has had no recent travel or changes in diet. He is not on blood thinners and has not had exposure to antibiotics. He denies recent illness and has had no fevers or chills, headaches or dizziness, nasal congestion or sore throat. He denies chest pain or palpitations and has no shortness of breath cough or wheezing. Upon arrival to the ER the patient is afebrile with temperature 96.8?, heart rate of 90, blood pressure elevated 170/1 2, respirations of 15 saturating 97 % on air. The patient underwent abdominal pelvic CT which identifies moderate mural thickening with surrounding edema of the descending and proximal sigmoid colon, no evidence of diverticular disease, no abscess or obstruction, normal appendix. On laboratory analyses white count elevated 13.5, hemoglobin of 16.1 and on recheck 15.5 with hematocrit of 44.8 and platelets of 0 6. Has a PT of 11.6 an INR 1.0 PTT of 32. His electrolytes are within normal limits and has a BUN of 14 and creatinine 1.01. His an elevated calcium at 10.0. His total bilirubin 0.6 with an AST of 28, ALT 34 and alkaline phosphatase 57. Discharge Providers Provider Date of admission: 06/27/19 01:15 Discharge Date: 06/28/19 Primary care physician: Julio Cesar Roblero Consults: 06/27/19 02:01 Consult to Discharge Planning Routine Comment: 06/27/19 08:43 Consult to General Surgery Routine Comment: Consulting Provider: Toñito Reed Reason for consultation: GI bleed Has provider been notified: Yes Discharge provider: Stephanie Hennessy DO Summary Hospital Course Discharge Diagnosis: 1. Acute C difficile colitis with rectal bleeding, present on admission. Resolving. Hospital Course: Galileo Cook is a 44-year-old male nonsmoker with a past medical history significant for bicuspid heart valve otherwise healthy who presented to the ED with abrupt onset copious watery diarrhea with rectal bleeding. 1. Acute C difficile colitis with rectal bleeding, present on admission. Resolving. -Patient had abrupt onset copious watery diarrhea with rectal bleeding the day prior to admission. The patient reports approximately 20 episodes of watery diarrhea. No prior personal or family history of GI bleeding, IBD or colon cancer. -Initial WBC 13.5. WBC trended down and normalized now 10.8. Patient has been afebrile. -Patient has not been anemic with initial hemoglobin 15.1 and trended down now 14.2 likely due to hemodilution. -Continued IV fluids until adequately hydrated then discontinued. -Continued to monitor electrolytes and replete if necessary. Patient did not require any electrolyte replacement throughout hospitalization. -Continued regular diet which patient tolerated well. -CT abdomen and pelvis with contrast demonstrated moderate mural thickening with surrounding edema of the descending and proximal sigmoid colon. No diverticular disease, no abscess, no obstruction, and normal appendix. -GI stool PCR positive for C difficile. -Consulted general surgery, Dr. Reed, who plan to perform colonoscopy on patient but was canceled due to identification of C. difficile colitis. Recommend elective outpatient colonoscopy once C. difficile colitis has completely resolved in 6-8 weeks to assure no other cause of rectal bleeding. We appreciate his time and care of the patient. -Started and continued vancomycin 125 mg every 6 hours for 2 weeks to complete treatment for C difficile colitis. Exam Vital Signs (past 8 hours): - 06/28/19 05:58 Temperature 98.0 F Pulse Rate 73 Respiratory Rate 18 Blood Pressure 100/71 Pulse Oximetry 95 Oxygen Delivery Method Room Air Oxygen Flow Rate 0 Narrative Exam Narrative: General: Middle-aged gentleman sitting in bed and in no acute distress, well- developed, well-nourished, appropriately interactive. HEENT: Normocephalic, atraumatic. External ears without defect. Pupils equal, round, and reactive to light. Anicteric sclerae, moist conjunctivae, and no lid lag. Oropharynx free of erythema and cobble stoning with moist mucosa. Neck: Supple with full range of motion. No lymphadenopathy or thyromegaly. Cardiovascular: Regular rate and rhythm without murmurs, rubs, or gallops appreciated Pulmonary: Clear to auscultation bilaterally without crackles, wheezes, or rhonc hi. Normal respiratory effort with no use of accessory muscles. Abdomen: Soft, bowel sounds present, mild tenderness to palpation in left lower quadrant, nondistended. No hepatosplenomegaly or masses appreciated. Extremities: No clubbing, cyanosis, or edema. Skin: Normal temperature, turgor, and texture; no rash, ulcers, or subcutaneous nodules appreciated. Neurological: Cranial nerves grossly intact. Psychiatric: Normal mood and affect. Alert and oriented to person, place, and time. Objective Labs Result Diagrams: 06/28/19 05:35 06/28/19 05:35 Labs: Laboratory Results - last 24 hr 06/27/19 06/27/19 06/27/19 05:00 05:00 09:30 WBC RBC Hgb Hct MCV MCH MCHC RDW Plt Count Neut % (Auto) Lymph % (Auto) [place] % (Auto) Eos % (Auto) Baso % (Auto) Neut # (Auto) Lymph # (Auto) [place] # (Auto) Eos # (Auto) Baso # (Auto) Sodium 137 Potassium 4.5 Chloride 100 Carbon Dioxide 30 BUN 13 Creatinine 1.15 Estimated GFR > 60.0 BUN/Creatinine Ratio 11.3 Glucose 121 H Calcium 9.1 Magnesium Procalcitonin 0.07 Stl C. cayetanensis PCR Stool Rotavirus (PCR) Stool Adenovirus (PCR) Stool Astrovirus (PCR) Stool Cryptosporidium PCR Stl E.coli Shiga Tox PCR St Sh/Enteroin Ecoli PCR Stool E coli O157 PCR Stl Enterotoxigenic E PCR Stool EPEC (PCR) Stl E. histolytica PCR Stool Giardia Lamblia PCR Stool Sapovirus (PCR) Stl P. shigelloides PCR St Y.enterocolitica PCR Stool Vibrio (PCR) Stl Vibrio cholerae PCR Stl Enteroaggr Ecoli PCR Stl Norovirus GI/GII PCR Campylobacter (PCR) C. difficile Tox (PCR) COVID-19 PCR Not detected Salmonella (PCR) 06/27/19 06/28/19 06/28/19 12:55 05:35 05:35 WBC 10.8 RBC 4.93 Hgb 14.2 Hct 41.1 MCV 83.3 MCH 28.8 MCHC 34.5 RDW 13.0 Plt Count 326 Neut % (Auto) 72.2 Lymph % (Auto) 17.9 L [place] % (Auto) 8.0 Eos % (Auto) 1.4 L Baso % (Auto) 0.5 Neut # (Auto) 7800 H Lymph # (Auto) 1900 [place] # (Auto) 900 Eos # (Auto) 200 Baso # (Auto) 100 Sodium 137 Potassium 3.9 Chloride 101 Carbon Dioxide 29 BUN 12 Creatinine 1.06 Estimated GFR > 60.0 BUN/Creatinine Ratio 11.3 Glucose 104 H Calcium 9.0 Magnesium 2.5 H Procalcitonin Stl C. cayetanensis PCR Not detected Stool Rotavirus (PCR) Not detected Stool Adenovirus (PCR) Not detected Stool Astrovirus (PCR) Not detected Stool Cryptosporidium PCR Not detected Stl E.coli Shiga Tox PCR Not detected St Sh/Enteroin Ecoli PCR Not detected Stool E coli O157 PCR Not detected Stl Enterotoxigenic E PCR Not detected Stool EPEC (PCR) Detected H Stl E. histolytica PCR Not detected Stool Giardia Lamblia PCR Not detected Stool Sapovirus (PCR) Not detected Stl P. shigelloides PCR Not detected St Y.enterocolitica PCR Not detected Stool Vibrio (PCR) Not detected Stl Vibrio cholerae PCR Not detected Stl Enteroaggr Ecoli PCR Not detected Stl Norovirus GI/GII PCR Not detected Campylobacter (PCR) Not detected C. difficile Tox (PCR) Detected H COVID-19 PCR Salmonella (PCR) Not detected Discharge Plan Discharge Plan Patient Disposition: Home Discharge comment: You're being discharged home. You have C. difficile colitis which caused your diarrhea and rectal bleeding. You have been provided a handou t regarding C difficile. Please use frequent hand washing with soap and water, bleach to wipe down surfaces and hot water and soap to wash and high heat to dry your clothes. Discharge orders & Medications Prescriptions: New vancomycin 125 mg Capsule 125 mg PO Q6HR Qty: 54 RF: 0 Follow up/Referrals: Julio Cesar Roblero [Primary Care Provider] - 1 Week (Doctor's office will call you and set up follow up appointment) Diet/Activity/Treatments Diet: Diet as Tolerated and Regular Activity: Activity as tolerated Visit Report/Discharge Packet Instructions: Vancomycin, DI for Colitis, Clostridium difficile Infection Visit Report Forms: Patient Portal/API, Stroke Signs & Symptoms Discharge Data Primary Care Provider: Julio Cesar Roblero VTE Deep Vein Thrombosis/Pulmonary Embolism Present on Admission: No
[2019-06-28 08:28] LABS: Procalcitonin 0.05 ng/mL (<0.5)
[2019-06-28 09:00] VITALS: BP 122/81; PULSE 80; RESP 18; TEMP 36.6; O2SAT 96
--- NOTE | 2019-06-28 12:42 | PC.NURSE ---
Discharge Pt denies pain. States frequency of stooling is decreasing. Still having diarrhea however he feels much better. Reports that his abdominal distention is also significantly decreased. Pt had questions regarding home care with c diff which were answered to pt's satisfaction. Paper Rx was given to pt to go get abx filled. pt reports taking all belonging home with him. left in w/c to meet downstairs in car to go home.
== END 2019-06-28 11:40 | disposition home or self-care (01) | DRG 372 ==
LOC: ED 06-27 01:13 → AC 06-27 01:16
PROVIDERS: Internal Medicine; Admitting Provider Nurse Practitioner Adult Health; Emergency Provider Emergency Medicine; PCP Family Medicine Sports Medicine; Referring Provider Emergency Medicine; Visit Provider Nurse Practitioner Adult Health
DX: A04.72 Enterocolitis due to Clostridium difficile, not specified as recurrent (principal); K62.5 Hemorrhage of anus and rectum; Z03.818 Encounter for observation for suspected exposure to other biological agents ruled out
CPT/HCPCS: 36415; 74022; 74177; 80048; 80053; 83735; 84145; 85014; 85018; 85025; 85610; 85730; 87507; 87635; 96365; 99252; 99285; C9113; J0744; J1720; J1956; Q9967